=== PATIENT | male | born 1945 | race Caucasian/White ===

== ENCOUNTER → 2016-05-25 | Outpatient (CLI) | payer OTHER, BC ==
[~2016-05-25] MED LIST: AMOX500T PO; ZOLP5TAB PO
== END | disposition home or self-care (01) ==
LOC: C.LAB 16:23
PROVIDERS: ATTEND Ophthalmology
DX: Z12.5 Encounter for screening for malignant neoplasm of prostate (principal)

== ENCOUNTER → 2017-01-28 | Outpatient (CLI) | payer OTHER, BC ==
[2017-01-28 11:23] LABS: ALT/SGPT 32 U/L (12-78); AST/SGOT 28 U/L (15-37); BLOOD UREA NITROGEN 18 mg/dl (7-18); CARBON DIOXIDE 28 mmol/L (21-32); CHLORIDE 108 mmol/L (98-107); GLUCOSE 96 mg/dl (70-99); POTASSIUM 4.1 mmol/L (3.5-5.1); SODIUM 141 mmol/L (136-145)
[2017-01-28 11:29] LABS: ALB/GLOB RATIO 1.3 (0.9-2); ALKALINE PHOSPHATASE 33 U/L (45-117); CHOLESTEROL 172 mg/dl (0-200); CHOLESTEROL/HDL RATIO 2.2; HDL CHOLESTEROL 77 mg/dl; TRIGLYCERIDES 74 mg/dl (0-150); VERY LOW DENSITY LIPOPROT CALC 15 mg/dl
== END | disposition home or self-care (01) ==
LOC: C.LABBC 07:34
PROVIDERS: ATTEND Internal Medicine
DX: Z00.00 Encounter for general adult medical examination without abnormal findings (principal); M85.80 Other specified disorders of bone density and structure, unspecified site; R30.0 Dysuria; E55.9 Vitamin D deficiency, unspecified